=== PATIENT | female | born 1990 | race Caucasian/White ===

== ENCOUNTER 2024-03-12 07:54 | Emergency (ER) | payer OTHER ==
[2024-03-12] MEDS ORDERED: ACETAMINOPHEN 500 MG TAB ONE (08:55)
[2024-03-12] MEDS ORDERED: IBUPROFEN 200 MG TAB PO ONE (08:56)
[2024-03-12 09:04] LABS: SARS-CoV-2 Antigen CONTROL BLUE LINE VIS/BG OK; SARS-CoV-2 Antigen Rapid Res Negative (Negative)
[2024-03-12] MEDS ORDERED: ONDANSETRON 4 MG (ODT) TAB ONE (09:47)
--- NOTE | 2024-03-12 09:49 | ER ---
Nurse's Notes [facility] Name: Claudia Chery Age: 33 yrs Sex: Female : 1990 Arrival Date: 03/12/2024 Time: 07:54 Bed 11 Private MD: Diagnosis: Myalgia;Fever, unspecified;Acute upper respiratory infection, unspecified Presentation: 03/12 08:18 Chief complaint: Headache, body aches, malaise, chills, and nausea since last night. hb Coronavirus screen: Client presents with at least one sign or symptom that may indicate coronavirus-19. Provider contacted for isolation considerations. Ebola Screen: No symptoms or risks identified at this time. Initial Sepsis Screen: Does the patient meet any 2 criteria? No. Patient's initial sepsis screen is negative. Does the patient have a suspected source of infection? No. Patient's initial sepsis screen is negative. Risk Assessment: Do you want to hurt yourself or someone else? Patient reports no desire to harm self or others. Onset of symptoms was March 11, 2024. 08:18 Method Of Arrival: Ambulatory 08:18 Acuity: CONY 4 hb Triage Assessment: 09:52 General: Appears in no apparent distress. Behavior is calm, cooperative. Pain: Denies le1 pain. Historical: - Allergies: 08:20 Ceclor; hb - Home Meds: 08:20 None [Active]; hb - PMHx: 08:20 None; hb - PSHx: 08:20 Left Arm; Tubal Ligation; Tonsillectomy; Adenoid excision; hb - Immunization history:: Adult Immunizations up to date. - Infectious Disease History:: Denies. - Social history:: Smoking status: Patient reports the use of cigarette tobacco products, smokes one pack cigarettes per day. Screenin:[facility] ED Fall Risk Assessment (Adult) History of falling in the last 3 months, le1 including since admission No falls in past 3 months (0 pts) Confusion or Disorientation No (0 pts) Intoxicated or Sedated No (0 pts) Impaired Gait No (0 pts) Mobility Assist Device Used No (0 pt) Altered Elimination No (0 pt) Score/Fall Risk Level 0 - 2 = Low Risk Oriented to surroundings, Maintained a safe environment, Educated pt \T\ family on fall prevention, incl call for assistance when getting out of bed, Assessed \T\ reinforced patient's understanding of fall precautions, Hourly rounding (assess needs \T\ fall precautionary measures) done, Used ambulatory aids as needed (educated on \T\ assisted with). Abuse screen: Denies threats or abuse. Nutritional screening: No deficits noted. Tuberculosis screening: No symptoms or risk factors identified. Vital Signs: 08:18 BP 132 / 75; Pulse 18; Resp 99 S; Temp 99.9(O); Pulse Ox 100% on R/A; Weight 77.11 kg; hb Height 5 ft. 5 in. ; Pain 7/10; 09:58 BP 105 / 58; Pulse 87; Resp 16; Temp 99.3; Pulse Ox 96% on R/A; Pain 0/10; le1 08:18 Body Mass Index 28.29 (77.11 kg, 165.1 cm) hb 08:18 Pain Scale: Adult hb 09:58 Pain Scale: Adult le1 ED Course: 08:00 Patient arrived in ED. mg5 08:06 Robbi Mckeon DO is Attending Physician. ms3 08:20 Triage completed. hb 08:21 Arm band placed on. hb 08:38 Flu Sent. em1 08:38 SARS RAPID Sent. em1 08:38 COVID swab sent to lab. Flu and/or RSV swab sent to lab. em1 09:47 Brittany Keenan, RN is Primary Nurse. le1 09:52 No provider procedures requiring assistance completed. Patient did not have IV access le1 during this emergency room visit. 09:53 Patient has correct armband on for positive identification. Bed in low position. Call le1 light in reach. Side rails up X 1. Provided Education on: Inform patient to use call light if needing assistance. Administered Medications: 08:55 Drug: Acetaminophen PO 1000 mg PO once Route: PO; hb 09:51 Follow up: Response: No adverse reaction; Pain is decreased le1 08:55 Drug: Ibuprofen PO 600 mg PO once Route: PO; hb 09:51 Follow up: Response: No adverse reaction; Pain is decreased le1 09:49 Drug: Ondansetron PO 4 mg PO once Route: PO; le1 10:09 Follow up: Response: Nausea is decreased le1 Medication: 09:54 VIS not applicable for this client. le1 Outcome: 09:48 Discharge ordered by . ms3 09:53 Condition: improved le1 10:08 Discharged to home ambulatory, le1 10:08 Discharge instructions given to patient, Instructed on discharge instructions, follow up and referral plans. medication usage, Demonstrated understanding of instructions, follow-up care, medications, Prescriptions given X 1, 10:09 Patient left the ED. le1 Signatures: Justin Cabrera em1 Elaine Garcia, RN RN Robbi Mckeon DO DO ms3 Osiris Mcmullen mg5 Brittany Keenan, RN RN le1
--- NOTE | 2024-03-12 09:49 | EDPHYS ---
Physician Documentation [facility] Name: Claudia Chery Age: 33 yrs Sex: Female : 1990 Arrival Date: 03/12/2024 Time: 07:54 Bed 11 Private MD: ED Physician Robbi Mckeon HPI: 03/12 12:37 This 33 yrs old Female presents to ER via Ambulatory with complaints of Flu Symptoms, ms3 Pain. 12:37 33-year-old female with no past medical history presents to the emergency department ms3 for headache, fever, body aches that began last night. Patient has not taken medications prior to arrival. Patient endorses nausea. She denies sick contacts. Historical: - Allergies: 08:20 Ceclor; hb - Home Meds: 08:20 None [Active]; hb - PMHx: 08:20 None; hb - PSHx: 08:20 Left Arm; Tubal Ligation; Tonsillectomy; Adenoid excision; hb - Immunization history:: Adult Immunizations up to date. - Infectious Disease History:: Denies. - Social history:: Smoking status: Patient reports the use of cigarette tobacco products, smokes one pack cigarettes per day. ROS: 12:37 Cardiovascular: Negative for chest pain, and palpitations. Respiratory: Negative for ms3 shortness of breath, cough, wheezing, and pleuritic chest pain, Abdomen/GI: Negative for abdominal pain, nausea, vomiting, diarrhea, and constipation, 12:37 Skin: Negative for injury, rash, and discoloration, 12:37 Constitutional: Positive for body aches, fever, Exam: 12:37 Constitutional: This is a well developed, well nourished patient who is awake, alert, ms3 and in no acute distress. Chest/axilla: Normal chest wall appearance and motion. Nontender with no deformity. Cardiovascular: Regular rate and rhythm with a normal S1 and S2. No gallops, murmurs, or rubs. Normal PMI, no JVD. No pulse deficits. Respiratory: Lungs have equal breath sounds bilaterally, clear to auscultation and percussion. No rales, rhonchi or wheezes noted. No increased work of breathing, no retractions or nasal flaring. Abdomen/GI: Soft, non-tender, with normal bowel sounds. No distension or tympany. No guarding or rebound. No evidence of tenderness throughout. Skin: Warm, dry with normal turgor. Normal color with no rashes, no lesions, and no evidence of cellulitis. MS/ Extremity: Pulses equal, no cyanosis. Neurovascular intact. Full, normal range of motion. Vital Signs: 08:18 BP 132 / 75; Pulse 18; Resp 99 S; Temp 99.9(O); Pulse Ox 100% on R/A; Weight 77.11 kg; hb Height 5 ft. 5 in. ; Pain 7/10; 09:58 BP 105 / 58; Pulse 87; Resp 16; Temp 99.3; Pulse Ox 96% on R/A; Pain 0/10; le1 08:18 Body Mass Index 28.29 (77.11 kg, 165.1 cm) hb 08:18 Pain Scale: Adult hb 09:58 Pain Scale: Adult le1 MDM: 08:38 Patient medically screened. ms3 12:37 Differential diagnosis: flu, URI, COVID. Data reviewed: vital signs, nurses notes, lab ms3 test result(s), and as a result, I will discharge patient. I considered the following discharge prescriptions or medication management in the emergency department Medications were administered in the Emergency Department. See MAR. Counseling: I had a detailed discussion with the patient and/or guardian regarding the historical points, exam findings, and any diagnostic results supporting the discharge/admit diagnosis, lab results, radiology results, the need for outpatient follow up, to return to the emergency department if symptoms worsen or persist or if there are any questions or concerns that arise at home. Special discussion: I discussed with the patient/guardian in detail that at this point there is no indication for admission to the hospital. It is understood, however, that if the symptoms persist or worsen the patient needs to return immediately for re-evaluation. ED course: Discussed labs with patient. Patient to follow-up with primary care physician in 2 to 3 days. Patient understands agrees with plan. All questions were answered. Return precautions discussed include worsening symptoms, or any other concerns.. 03/12 08:07 Order name: SARS RAPID; Complete Time: :28 ms3 03/12 08:07 Order name: Flu; Complete Time: : ms3 Administered Medications: 08:55 Drug: Acetaminophen PO 1000 mg PO once Route: PO; hb 09:51 Follow up: Response: No adverse reaction; Pain is decreased le1 08:55 Drug: Ibuprofen PO 600 mg PO once Route: PO; hb 09:51 Follow up: Response: No adverse reaction; Pain is decreased le1 09:49 Drug: Ondansetron PO 4 mg PO once Route: PO; le1 10:09 Follow up: Response: Nausea is decreased le1 Disposition Summary: 03/12/24 09:48 Discharge Ordered Notes: Location: Home ms3 Condition: Stable ms3 Diagnosis - Myalgia ms3 - Fever, unspecified ms3 - Acute upper respiratory infection, unspecified ms3 Followup: ms3 - With: Private Physician - When: 2 - 3 days - Reason: Recheck today's complaints Discharge Instructions: - Discharge Summary Sheet ms3 - Viral Respiratory Infection ms3 - Upper Respiratory Infection, Adult, [id number] ms3 Forms: - Medication Reconciliation Form ms3 - Antibiotic Education ms3 - Prescription Opioid Use ms3 - Patient Portal Instructions ms3 - Leadership Thank You Letter ms3 Signatures: Dispatcher [employer] Elaine Vargas, RN RN Robbi Luna, DO DO ms3 Brittany Keenan RN RN le1
[2024-03-12 10:27] VITALS: BP 105/58; TEMP 99.3; O2SAT 96
== END 2024-03-12 10:09 | disposition home or self-care (01) ==
LOC: ER 07:54
DX: J06.9 Acute upper respiratory infection, unspecified (principal); R50.9 Fever, unspecified; F17.210 Nicotine dependence, cigarettes, uncomplicated; Z11.52 Encounter for screening for COVID-19
CPT/HCPCS: 36415; 87804 ×2; 99284; 87811; Q0162